=== PATIENT | female | born 1960 | race Caucasian/White ===

== ENCOUNTER 2022-04-25 19:14 | Emergency (ER) | payer BC, SELFPAY ==
[2022-04-25] VITALS (17 sets, daily range): BP systolic 106–138; BP diastolic 67–86; PULSE 54–68; RESP 10–25; TEMP 36.3; O2SAT 96–100
--- NOTE | ~2022-04-25 | XR_ITS ---
EXAMINATION: XR chest 1V portable Exam Date/Time: 04/25/2022 19:40 [employer] HISTORY: sob SYNCOPAL EPISODE Comparison: None available. RESULT: Lines, tubes, and devices: None. Lungs and pleura: Clear. Cardiomediastinal silhouette: Unremarkable. Other: No acute osseous or upper abdominal finding. IMPRESSION: No acute cardiopulmonary process. Reviewed, dictated and finalized at location [facility]
--- NOTE | 2022-04-25 19:17 | ED.CHESTPAIN ---
HPI - Chest Pain General Chief Complaint: Chest Pain <Natalia Hernandez MD - Last Filed: 04/26/22 13:13> Stated Complaint: STEMI <Natalia Hernandez MD - Last Filed: 04/26/22 13:13> History of Present Illness HPI narrative: Patient is a 62-year-old female presenting as a STEMI alert. Patient reports that she recently had a dental procedure so she has had minimal p.o. intake for the last several days. This evening she felt lightheaded and then had a syncopal episode. When she awoke she was diaphoretic and nauseated. Her daughter called EMS and a twelve-lead showed elevations in leads II, 3, aVL with no reciprocal changes. Patient was noted to be hypotensive with systolics in the 80s so she was given 500 cc of saline with some improvement in her pressures. Patient received aspirin and Zofran with improvement in her nausea. Patient denies chest pain or shortness of breath. Denies fevers coughs. No further complaints. <Natalia Hernandez MD - Last Filed: 04/26/22 13:13> Related Data Allergies/Adverse Reactions: Allergies Allergy/AdvReac Type Severity Reaction Status Date / Time aspirin [From Bufferin] Allergy Swelling Verified 04/25/22 19:47 calcium carbonate Allergy Swelling Verified 04/25/22 19:47 [From Bufferin] magnesium [From Bufferin] Allergy Swelling Verified 04/25/22 19:47 <Natalia Hernandez MD - Last Filed: 04/26/22 13:13> Review of Systems Review of Systems: ROS unobtainable: Yes unobtainable due to medical condition <Natalia Hernandez MD - Last Filed: 04/26/22 13:13> Exam Narrative: GENERAL: well appearing female, in no acute distress HEAD: Normocephalic, atraumatic. EYES: PERRLA and EOMI. ENT: Nares clear, no rhinorrhea or epistaxis. Mucous membranes moist. NECK: Supple. CHEST: Clear to auscultation. No respiratory distress. HEART: Regular rate and rhythm. No murmur heard. Normal peripheral pulses. ABDOMEN: Soft, nontender, nondistended, normal active bowel sounds. EXTREMITIES: Normal range of motion. No edema. SKIN: Warm, dry, no rash. NEURO: No focal deficits. Alert and oriented x3. PSYCH: Normal mood and affect. <Natalia Hernandez MD - Last Filed: 04/26/22 13:13> Course Vital Signs Vital signs: Vital Signs Pulse Rate 63 04/25/22 19:24 Respiratory Rate 25 H 04/25/22 19:24 Blood Pressure 127/83 04/25/22 19:24 Pulse Oximetry 100 04/25/22 19:24 Temperature 97.4 F L 04/25/22 19:25 Pulse Rate 61 04/25/22 23:16 Respiratory Rate 14 04/25/22 23:16 Blood Pressure 112/67 04/25/22 23:16 Pulse Oximetry 96 04/25/22 23:16 Oxygen Delivery Room Air 04/25/22 19:25 <Natalia Hernandez MD - Last Filed: 04/26/22 13:13> Vital Signs Pulse Rate 63 04/25/22 19:24 Respiratory Rate 25 H 04/25/22 19:24 Blood Pressure 127/83 04/25/22 19:24 Pulse Oximetry 100 04/25/22 19:24 Temperature 97.4 F L 04/25/22 19:25 Pulse Rate 61 04/25/22 23:16 Respiratory Rate 14 04/25/22 23:16 Blood Pressure 112/67 04/25/22 23:16 Pulse Oximetry 96 04/25/22 23:16 Oxygen Delivery Room Air 04/25/22 19:25 <Tomasz Gonzalez MD - Last Filed: 04/25/22 23:18> MDM - Chest Pain MDM Narrative Medical decision making narrative: Patient is a 62-year-old female presenting as a STEMI alert. EKG transmitted from the field shows ST elevations in leads II, 3, aVL. No reciprocal depressions. A STEMI alert was called and [employer] was activated. On arrival, patient is in no acute distress. She denies any chest pain. States her nausea has improved. EKG here shows sinus bradycardia, no ST elevations or depressions, there are nonspecific ST-T wave abnormalities. STEMI alert was canceled. Patient reports having a couple of alcoholic beverages this evening as it is her birthday. States that the syncopal episode happened following the beverages. States that she has had syncopal episodes in the past that are related to
--- NOTE | 2022-04-25 19:24 | ECG_ITS ---
Measurements Intervals [place] Rate: 53 P: 40 ND: 168 QRS: 25 QRSD: 97 T: 42 QT: 469 QTc: 441 Interpretive Statements SINUS BRADYCARDIA POSSIBLE LEFT ATRIAL ENLARGEMENT NONSPECIFIC ST & T-WAVE ABNORMALITY- LAT/HIGH LAT LEADS BASELINE ARTIFACT- I, II, III, AVR, AVL, AVF, V4-V6 BORDERLINE ECG NO PREVIOUS ECG AVAILABLE FOR COMPARISON Electronically Signed On 04-26-2022 7:12:37 [facility] MK [facility] [employer]PER[employer] by Valentin Delarosa D.O.
[2022-04-25 19:43] LABS: Basophils Absolute Auto 0.1 K/mm3 (0.0-0.1); Basophils Percent Auto 0.5 % (0.2-1.2); Eosinophils Absolute Auto 0.1 K/mm3 (0-0.3); Eosinophils Percent Auto 0.8 % (0-4.4); Hematocrit 47.5 % (37.0-47.0); Hemoglobin 15.7 g/dL (12.0-15.0); Immature Granulocyte Absolute 0.05 K/mm3 (0.00-0.031); Immature Granulocyte Percent A 0.4 % (0-0.5); Lymphocytes Absolute Auto 5.63 K/mm3 (0.9-3.2); Lymphocytes Percent Auto 43.5 % (18.3-44.2); Mean Corpuscular HGB Conc 33.1 g/dl (32-36); Mean Corpuscular Volume 93.9 fl (80-100); Mean Platelet Volume 10.1 fl (7.4-10.4); Monocytes Absolute Auto 1.1 K/mm3 (0.1-0.6); Monocytes Percent Auto 8.6 % (2.6-8.5); Neutrophils Percent Auto 46.2 % (45.5-73.1); Platelet Count Result 378 k/mm3 (150-375); Red Blood Count 5.06 M/mm3 (4.2-5.4); Red Cell Distribution Width 13.1 % (11.5-14.5); White Blood Count 12.9 K/mm3 (4.5-10.0)
[2022-04-25] MEDS: SODIUM CHLORIDE 0.9% IV 1,000 ML 999 ML IV CONT (19:53)
[2022-04-25 19:56] LABS: Alanine Aminotransferase 20 U/L (6-35); Albumin Level 5.1 g/dL (3.5-5.1); Alkaline Phosphatase 85 U/L (38-126); Anion Gap 12 mmol/L (8-16); Aspartate Amino Transferase 24 U/L (14-36); Bilirubin,Total 1.1 mg/dL (0.2-1.3); Blood Urea Nitrogen 16 mg/dL (7-17); Calcium 9.8 mg/dL (8.4-10.2); Carbon Dioxide 26 mmol/L (22-30); Chloride 100 mmol/L (98-107); Estimated CRCL calculation 52 ml/min; Estimated Glomerular Filt Rate > 60; Glucose 94 mg/dL (65-110); Lipase 65 U/L (23-300); Sodium 138 mmol/L (137-145)
[2022-04-25 19:57] LABS: Prothrombin Time 13.1 Seconds (11.1-14.7)
[2022-04-25 19:58] LABS: Partial Thromboplastin Time 24.6 SECONDS (22.3-36.8)
[2022-04-25 20:08] LABS: Troponin I < 0.012 ng/mL (0.000-0.034)
[2022-04-25 21:23] LABS: Appearance Urine Clear (Clear); Bilirubin Urine Negative (Negative); Blood Urine Negative (Negative); Color Urine Yellow (Yellow); Glucose Urine UA Negative (Negative); Ketones Urine Negative (Negative); Leukocyte Esterase Ur Negative LEU/UL (Negative); Nitrate Urine Negative (Negative); Protein Urine Negative (Negative); Specific Grav Ur 1.015 (1.001-1.035); Urobilinogen Urine 0.2 mg/dL (<2.0); pH Urine 7.5 (5.0-9.0)
[2022-04-25 21:38] LABS: Mucus Urine Rare /lpf; RBC Urine 0-2 /hpf (0-2); Squamous Epithelial Cell Urine Rare /hpf (Few); WBC Urine 0-3 /hpf
[2022-04-25 21:40] LABS: Add Urine Microscopic? NO
[2022-04-25 22:58] LABS: Troponin I < 0.012 ng/mL (0.000-0.034)
== END 2022-04-26 00:10 | disposition home or self-care (01) ==
PROVIDERS: Emergency Provider Emergency Medicine
DX: R55 Syncope and collapse (principal); E87.6 Hypokalemia
CPT/HCPCS: 36415; 71045; 80053; 81003; 83690; 84484; 85025; 85610; 85730; 93005; 96360; 99284; J7030